=== PATIENT | male | born 1985 | race Caucasian/White ===

== ENCOUNTER 2018-02-08 20:24 | Emergency (ER) | payer MEDICAID, SELFPAY, OTHER ==
[2018-02-08] MEDS: METHOCARBAMOL 500 MG TAB PO ×2 (22:45)
[2018-02-08] MEDS: NORCO 5/325MG TABLET (BULK FOR ED) PO ×2 (22:45)
[2018-02-08] MEDS: IBUPROFEN 800 MG TAB PO ×2 (22:45)
== END 2018-02-08 22:56 | disposition home or self-care (01) ==
LOC: M ED 20:24
DX: S39.012A Strain of muscle, fascia and tendon of lower back, initial encounter (principal); X50.9XXA Other and unspecified overexertion or strenuous movements or postures, initial encounter; Y92.89 Other specified places as the place of occurrence of the external cause
CPT/HCPCS: 99283

== ENCOUNTER 2019-08-29 07:58 | Emergency (ER) | payer MEDICAID, OTHER ==
[~2019-08-29] VITALS: Ht 188 cm; Wt 140.5 kg
[~2019-08-29 07:58] MED LIST: HYDR-3715 PO; IBUP80TA PO; ROBA500T PO; pain reliever PO
[2019-08-29] MEDS ORDERED: ACET-908 PO (08:04)
[2019-08-29] MEDS ORDERED: BACITRACIN OINT 30GM TOP ONE (09:15)
[2019-08-29] MEDS ORDERED: MUPI30CR TOP (09:46)
[2019-08-29 09:49] VITALS: BP 133/89
== END 2019-08-29 09:59 | disposition home or self-care (01) ==
LOC: M ED 07:58
DX: S91.101A Unspecified open wound of right great toe without damage to nail, initial encounter (principal); Y92.480 Sidewalk as the place of occurrence of the external cause; Y93.K1 Activity, walking an animal; W22.8XXA Striking against or struck by other objects, initial encounter; F17.210 Nicotine dependence, cigarettes, uncomplicated

== ENCOUNTER → 2020-09-20 | Outpatient (REF) ==
[~2020-09-20] MED LIST changes: +ACET-908 PO; +MUPI30CR TOP
== END ==
LOC: M LAB 09:20
PROVIDERS: ATTEND Nurse Practitioner Adult Health
DX: Z00.00 Encounter for general adult medical examination without abnormal findings (principal)